=== PATIENT | male | born 2000 | race Caucasian/White ===

== ENCOUNTER 2022-02-11 23:51 | Emergency (ER) | payer OTHER, SELFPAY ==
[~2022-02-11] VITALS: Ht 182.9 cm; Wt 70.5 kg
[2022-02-12] MEDS ORDERED: NO HOME MEDS (01:21)
[2022-02-12 02:10] LABS: URINE AMPHETAMINE SCREEN NEGATIVE (Neg); URINE BARBITUATE SCREEN NEGATIVE (Neg); URINE BENZODIAZEPINES SCREEN NEGATIVE (Neg); URINE CANNABINOID SCREEN NEGATIVE (Neg); URINE COCAINE SCREEN NEGATIVE (Neg); URINE METHADONE SCREEN NEGATIVE (Neg); URINE OPIATE SCREEN NEGATIVE (Neg); URINE PHENCYCLIDINE SCREEN NEGATIVE (Neg)
[2022-02-12 02:26] LABS: BASOPHILS # (AUTO) 0.1 X10'3 (0-0.2); BASOPHILS % (AUTO) 0.6 % (0-1); EOSINOPHILS # (AUTO) 0.5 X10'3 (0-0.9); HEMATOCRIT 47.1 % (42.0-52.0); HEMOGLOBIN 16.3 g/dl (14.0-17.9); LYMPHOCYTES # (AUTO) 2.6 X10'3 (1.1-4.8); LYMPHOCYTES % (AUTO) 28.5 % (21-51); MEAN CORPUSCULAR HGB CONC 34.6 g/dL (33.0-36.5); MEAN CORPUSCULAR VOLUME 89.4 FL (78-98); MEAN PLATELET VOLUME 7.9 FL (7.4-10.4); MONOCYTES # (AUTO) 0.7 X10'3 (0-0.9); MONOCYTES % (AUTO) 8.2 % (2-12); NEUTROPHILS # (AUTO) 5.3 X10'3 (1.8-7.7); NEUTROPHILS % (AUTO) 57.7 % (42-75); PLATELET COUNT 254 X10'3 (140-440); RED BLOOD COUNT 5.27 X10'6 (4.70-6.10); WHITE BLOOD COUNT 9.1 X10'3 (4.5-11.0)
[2022-02-12 02:33] LABS: ALANINE AMINOTRANSFERASE 23 U/L (12-78); ALBUMIN 4.4 G/DL (3.4-5.0); ALBUMIN/GLOBULIN RATIO 1.5 (1.1-1.5); ALKALINE PHOSPHATASE 93 IU/L (20-180); ANION GAP 9 (8-16); ASPARTATE AMINO TRANSFERASE 18 U/L (10-37); BILIRUBIN,TOTAL 0.7 MG/DL (0.1-1.0); BLOOD UREA NITROGEN 14 MG/DL (7-18); BUN/CREATININE RATIO 15.1 (5.4-32.0); CALCIUM 9.5 MG/DL (8.5-10.1); CHLORIDE 101 MMOL/L (99-107); CREATININE 0.93 MG/DL (0.60-1.10); GLUCOSE 94 MG/DL (70-104); POTASSIUM 3.2 MMOL/L (3.5-5.1); SODIUM 139 MMOL/L (135-145); TOTAL CARBON DIOXIDE 28.7 MMOL/L (24-32); TOTAL PROTEIN 7.4 G/DL (6.4-8.2); eGFR > 90 ML/MIN
[2022-02-12 02:36] LABS: ACETAMINOPHEN < 2.0 UG/ML (10-30); ETHANOL < 0.010 GM/DL (0.0-0.010)
--- NOTE | 2022-02-12 05:25 | NUR ---
records sent to [facility]
[2022-02-12 06:44] VITALS: BP 133/80
--- NOTE | 2022-02-12 08:54 | NUR ---
Pt given a breakfast tray. Sitter at bedside
--- NOTE | 2022-02-12 09:00 | NUR ---
Pt moved from main ER to Overflow # [id number]. Pt agreed to not harm himself while in our care.
--- NOTE | 2022-02-12 12:30 | NUR ---
Pt eating lunch.
--- NOTE | 2022-02-12 13:33 | NUR ---
Per Catalino, [facility] staff, pt is no longer on a hold and will be picked up by his mother today at 1500.
--- NOTE | 2022-02-12 14:25 | NUR ---
Pt and mother given and understands d/c instructions. Escorted out of the department by Security Staff.
== END 2022-02-12 14:25 | disposition home or self-care (01) ==
LOC: ER 23:52
DX: R45.851 Suicidal ideations (principal); Z20.822 Contact with and (suspected) exposure to COVID-19; Z88.0 Allergy status to penicillin; Z88.2 Allergy status to sulfonamides
CPT/HCPCS: 36415; 80053; 80305; 80320; 80329; 85025; 87811; 99285

== ENCOUNTER 2022-04-02 11:25 | Emergency (ER) | payer OTHER ==
[~2022-04-02] VITALS: Ht 182.9 cm; Wt 72.7 kg
[~2022-04-02 11:25] MED LIST: NO HOME MEDS
[2022-04-02 11:27] VITALS: BP 121/88
== END 2022-04-02 12:34 | disposition left against medical advice (07) ==
LOC: ER 11:25
DX: Z04.6 Encounter for general psychiatric examination, requested by authority (principal); Z20.822 Contact with and (suspected) exposure to COVID-19; Z53.21 Procedure and treatment not carried out due to patient leaving prior to being seen by health care provider
CPT/HCPCS: 87811

== ENCOUNTER 2024-10-14 15:11 | Emergency (ER) | payer MEDICAID, OTHER ==
[~2024-10-14] VITALS: Ht 182.9 cm; Wt 72.9 kg
[2024-10-14] MEDS: HYDROcodone/acetaminophen 5mg/325mg tablet PO ONE (15:32)
--- NOTE | 2024-10-14 15:32 | Physician Documentation ---
History of Present Illness ~ Chief Complaint: Testicular Pain Stated Complaint: TESTICULAR TORSION Time Seen by MD: 15:22 Primary Medical Doctor: DR CHRISTENSEN HPI Year old male presents to the emergency department today with complaints of right testicular pain. 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 Patient has not required reduction repair of the tissue torsion in the past. Reports that the torsion resolved on its own with diagnostic testing in his last event. He reports his pain at 8 to 9/10 currently. Patient denies recent sexual contact, but does report that he had sex several months ago. Denies any current urinary symptoms. Denies any symptoms consistent with STI at this time. Medication Reconciliation Allergies: Uncoded Allergies: PENICILLIN (Allergy, Unknown, RASH, 10/03/21) SULFA (Allergy, Unknown, RASH, 10/03/21) Miscellaneous Medications Home Med List (No Home Medications), (Reported) Past Medical History Past Medical History: *RENAL/* Past Surgical History: noncontributory Alcohol Use: Other Review of Systems All Other Systems at this time: Reviewed and Negative ROS As stated above in the HPI, otherwise all systems are reviewed and negative. Physical Exam Vital Signs: Temperature: 98.3, Source: Temporal, Heart Rate: 100, Respiratory Rate: 16, BP: 114/80, Pulse Oximetry: 100, Weight: 72.900 Physical Exam VITALS: Reviewed and as above. GENERAL: Alert, mild distress HEENT: Normocephalic, atraumatic, PERRL, EOMI, dry mucosa, no erythema RESPIRATORY: Lungs clear, normal breath sounds, no respiratory distress. CHEST: No accessory muscle use, no retractions CV: Regular rate, rhythm, no edema, no murmur, No: JVD GI: Soft, non-tender, bowels sounds present, no rebound, guarding, or rigidity, no swelling, bruising or overt abnormality noted to testes at this time, painful to manipulation and palpation. BACK: No CVA tenderness, or swelling MUSCULOSKELETAL No deformities, no edema SKIN: Warm and dry, no rash NEURO: Oriented x4, No motor or sensory deficit PSYCH: Normal mood and affect, no agitation Progress Results/Orders Results/Orders Orders - DESIREE BRAVO [employer] (10/14/24 15:22) Us Testic/W/Duplex (10/14/24 15:32) Completed Orders - DESIREE BRAVO Hydrocodone/Apap 5/325mg Tab ([place] /32 (10/14/24 15:25) Medications Received in ER Medications (Trade) Dose Ordered Sig/Tammie Route PRN Reason Start Time Stop Time Status Last Admin Dose Admin ([place] 5/325mg tablet) 1 tab ONCE ONCE PO 10/14/24 15:25 10/14/24 15:29 DC 10/14/24 15:32 1 TAB Vital Signs 10/14/24 10/14/24 10/14/24 15:19 15:32 15:34 Temp 98.3 Pulse 100 92 Resp 16 16 17 B/P (MAP) 114/80 120/78 (92) Pulse Ox 100 98 O2 Flow Rate 0 Medical Decision Making Findings he patient is suffering from testicular pain, but based on the history, exam, and testing, I do not suspect that the patient has testicular torsion, abscess, severe cellulitis, Fourniers gangrene, or other emergent cause. US Scrotum: Disposition: Plan follow up with primary care doctor for symptom re-check and possible referral to urology. Discussed return precautions at bedside. Discharge. Departure Disposition: HOME / SELF CARE / HOMELESS Impression: Primary Impression: Pain in testicle Condition: Stable Additional Instructions: You were evaluated for pain in her right testing resolution seems consistent with previous episode of this. Ultrasound is negative for any torsion or any other concerning abnormality at this time. Does suggest maybe small hydrocele in the right testes. Primary care provider for this, and possibly a repeat ultrasound. Discussed with your primary care provider referral for Urology. We will follow up with you regarding UA sample submitted today if there are any concerns. Referrals: NO PRIMARY CARE PROVIDER (PCP) Education Educated: Patient Educated regarding: treatment, need for follow up Signature Scribe Signature: . Attestation: Scribed for Desiree Bravop by CYNTHIA Hussein . 10/14/24 16:20 DESIREE BRAVO Oct 14, 2024 15:32
[2024-10-14 16:36] VITALS: BP 112/72; PULSE 88; RESP 16; TEMP 98.3; O2SAT 98
[2024-10-14 16:39] LABS: LEUKOCYTE ESTERASE ,URINE NEGATIVE (Neg); NITRITES, URINE NEGATIVE (Neg); OCCULT BLOOD,URINE NEGATIVE (Neg)
--- NOTE | 2024-10-14 16:49 | RADIOLOGY REPORT ---
EXAM: US US TESTIC/W/DUPLEX HISTORY: pain COMPARISON: US TESTIC on DOS: 10/03/21 TECHNIQUE: Scrotal ultrasound was performed. FINDINGS: The right testicle measures 4.2 x 2.4 x 3.0 cm. The left testicle measures 5.3 x 2.2 x 2.9 cm. No t esticular masses, cystic lesions, abnormal color Doppler blood flow are identified in either testicle . Microcalcifications are visualized in the bilateral testicles. No abnormal color Doppler blood flow is identified in the bilateral epididymi. Small hydroceles are identified bilaterally. Valsalva m aneuver was not performed to assess for varicocele. IMPRESSION: 1. No sonographic evidence of testicular masses, epididymitis, or orchitis. 2. Microcalcifications visualized in the bilateral testicles. These are nonspecific. Recommend follo w-up outpatient urology consultation for appropriate follow-up. 3. Small bilateral hydroceles incidentally noted.
[2024-10-14 17:10] LABS: UA COLLECTION TYPE CLN CATCH MIDSTREAM
== END 2024-10-14 16:38 | disposition home or self-care (01) ==
LOC: ER 15:11
DX: N50.811 Right testicular pain (principal)
CPT/HCPCS: 36415; 76870; 81003; 87491; 93976; 99284

== ENCOUNTER 2024-12-05 20:04 | Emergency (ER) | payer MEDICAID, OTHER ==
[~2024-12-05] VITALS: Ht 182.9 cm; Wt 62.6 kg
[2024-12-05 20:06] VITALS: BP 126/81; PULSE 85; TEMP 98.1; O2SAT 98
--- NOTE | 2024-12-05 21:52 | RADIOLOGY REPORT ---
CLINICAL HISTORY: TESTICULAR PAIN TECHNIQUE: High resolution scrotal ultrasound was performed with a linear transducer with duplex dopp ler and sales representative womens health images acquired. COMPARISON: US US TESTIC/W/DUPLEX on DOS: 10/14/24, US TESTIC on DOS: 10/03/21 FINDINGS: The right testis measures 5.0 X 3.0 X 3.1 cm. The left testis measures 4.1 X 2.4 X 3.2 cm. There is n o intratesticular mass or calcification. The bilateral epididymides appear unremarkable. There are normal spectral doppler and vascular waveforms. IMPRESSION: No significant sonographic abnormality of the scrotum / testicles.
--- NOTE | 2024-12-05 22:51 | Physician Documentation ---
History of Present Illness ~ Chief Complaint: Testicular Pain Stated Complaint: TESTICULAR PAIN Time Seen by MD: 21:25 Primary Medical Doctor: DR CHRISTENSEN HPI Patient is seen today with complaints of bilateral testicular pain. Patient states he has had pain like this a few months ago but he saw he had testicular torsion but there was no testicular torsion demonstrated on ultrasound. Patient denies any penile discharge and denies any urinary symptoms of dysuria or urinary frequency or urgency. Patient denies any fevers or chills and has no other concern or complaint at this time. Medication Reconciliation Allergies: Uncoded Allergies: PENICILLIN (Allergy, Unknown, RASH, 10/03/21) SULFA (Allergy, Unknown, RASH, 10/03/21) Miscellaneous Medications Home Med List (No Home Medications), (Reported) Past Medical History Past Medical History: *RENAL/* Past Surgical History: noncontributory Alcohol Use: Other Review of Systems Constitutional: Denies: chills, fever, weakness Eyes: Denies: pain, blurred vision ENT: Denies: ear pain, nose pain, throat pain, mouth pain Respiratory: Denies: cough, shortness of breath Cardiovascular: Denies: chest pain, palpitations Gastrointestinal: Denies: abdominal pain, nausea, vomiting Genitourinary: Denies: burning, dysuria Male Genitalia: Denies: penile discharge, testicular pain Neurological: Denies: headache, dizziness Musculoskeletal: Denies: pain, swelling Integumentary: Denies: rash, lesions Allergic/Immunologic: Denies: hives, itching Hematologic/Lymphatic: Denies: no symptoms reported Psychiatric: Denies: depression, anxiety Physical Exam Vital Signs: Temperature: 98.1, Source: Temporal, Heart Rate: 85, Respiratory Rate: 18, BP: 126/81, Pulse Oximetry: 98, Weight: 62.600 Oxygen Flow Rate: 0 Physical Exam General: Awake and Alert, no acute distress. HEENT: Conjunctiva pink, Sclera clear, Mucus Membranes moist. Neck: Supple without masses and tenderness. Resp: Unlabored. Lungs clear to auscultation bilaterally. Heart: Regular Rate and rhythm, normal S1 and S2 without murmur, rub or gallop. Abdomen: Soft and non tender no organomegaly Genitourinary exam: Patient on exam has no swelling or erythema or warmth or abnormality appreciated of the genitals or testicles or scrotum or penis. Patient does have seemingly out of proportion pain on exam with light palpation of the testicles. Extremities: No cyanosis,clubbing or edema. Skin: Warm and Dry. Progress Results/Orders Results/Orders Vital Signs 12/05/24 20:06 Temp 98.1 Pulse 85 Resp 18 B/P (MAP) 126/81 Pulse Ox 98 O2 Flow Rate 0 Medical Decision Making Findings Patient is seen today with complaints of bilateral testicular pain. Patient states he has had pain like this a few months ago but he saw he had testicular torsion but there was no testicular torsion demonstrated on ultrasound. Patient denies any penile discharge and denies any urinary symptoms of dysuria or urinary frequency or urgency. Patient denies any fevers or chills and has no other concern or complaint at this time. Patient did have ultrasound of the scrotum and testicles that showed no significant abnormality. Patient will follow up with primary care for referral to Urology for further eval and treatment. Patient will return to ED with any worsening, concerning or changing symptoms. Patient was given Toradol injection IM 30 mg in the ED today. Patient will continue Tylenol ibuprofen as needed at home for symptomatic pain relief. Departure Disposition: HOME / SELF CARE / HOMELESS Impression: Primary Impression: Pain in testicle Qualified Codes: N50.811 - Right testicular pain; N50.812 - Left testicular pain Condition: Stable Discharge Instructions: Testicular Self-Exam, [id number] Additional Instructions: Patient did have ultrasound of the scrotum and testicles that showed no significant abnormality. Patient will follow up with primary care for referral to Urology for further eval and treatment. Patient will return to ED with any worsening, concerning or changing symptoms. Patient was given Toradol injection IM 30 mg in the ED today. Patient will continue Tylenol ibuprofen as needed at home for symptomatic pain relief. Referrals: NO PRIMARY CARE PROVIDER (PCP) Signature Scribe Signature: No scribe Attestation: No scribe JULIO ELKINS PAC Dec 05, 2024 22:50
[2024-12-05 23:27] VITALS: RESP 14
[2024-12-05] MEDS: ketorolac trometh 30MG/ML vial 30 MG/ML VIAL IM STA (23:27)
== END 2024-12-05 23:35 | disposition home or self-care (01) ==
LOC: ER 20:05
DX: N50.811 Right testicular pain (principal); N50.812 Left testicular pain
CPT/HCPCS: 76870; 93976; 96372; 99285; J1885